=== PATIENT | male | born 1950 | race Caucasian/White ===

== ENCOUNTER → 2016-12-23 | Outpatient (CLI) | payer OTHER ==
[2015-07-18 14:15] VITALS: BP 144/74
--- NOTE | 2016-12-30 15:57 | MRI ---
MR right shoulder without contrast Indication: Right shoulder pain Technique: Multiplanar multi imaging through the right shoulder without contrast Findings: There is mild atrophy of the supraspinatus muscle belly. Mild atrophy of the mid and upper infraspinatus muscle belly noted. Bone marrow signal is normal. 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 This there is moderat e joint effusion with subscapular recess and coracoid bursal distention. The biceps tendon is attenua yelena and probably partially torn with fluid and debris seen in the biceps tendon sheath. Subchondral c yst seen at the glenohumeral joint. The glenoid labrum is chronically torn. There is tear of the supraspinatus at the footprint, high-grade with delaminating component tracking into the anterior fibers of the infraspinatus. Superior fibers subscapularis are torn. Biceps tendon is subluxed medially and partially torn. Osteochondral bodies seen in the biceps tendon sheath. Impression: 1. High-grade tear at the footprint of the supraspinatus, tracking into the anterior fibers of the in fraspinatus. 2. Cut superior fibers subscapularis high-grade tear. 3. Glenohumeral and acromioclavicular joint degenerative changes. 4. Chronic degenerative labral tear. 5. Medial biceps tendon subluxation with partial tear of the biceps tendon. Osteochondral bodies seen in the biceps tendon sheath. Reported By:
== END | disposition home or self-care (01) | DRG 556 ==
LOC: RAD 08:33
PROVIDERS: ATTEND Internal Medicine
DX: M25.511 Pain in right shoulder (principal); M75.121 Complete rotator cuff tear or rupture of right shoulder, not specified as traumatic; S46.811A Strain of other muscles, fascia and tendons at shoulder and upper arm level, right arm, initial encounter; X58.XXXA Exposure to other specified factors, initial encounter; S43.491A Other sprain of right shoulder joint, initial encounter; S43.081A Other subluxation of right shoulder joint, initial encounter
CPT/HCPCS: 73221

== ENCOUNTER 2017-04-23 17:48 | Emergency (ER) | payer OTHER ==
[2017-04-23 17:54] VITALS: BP 131/77; BMI 44.3
[2017-04-23] MEDS ORDERED: NS 1000 ML 1,000 ML ONE (18:01)
[2017-04-23] MEDS ORDERED: TORADOL 30 MG VIAL IVP ONE (18:04)
[2017-04-23] MEDS ORDERED: NS 1000 ML 1,000 ML IV ONE (18:04)
--- NOTE | 2017-04-23 18:05 | DR.GENAD ---
HPI - PCP Primary Care Physician: rosanna - Complaint/Symptoms Chief Complaint:: patient stated for the last 2 days he has been feeling like he has the flu. having body aches,fever,vomiting. - Nurses notes reviewed Nurses Notes Review: Yes - Source History Provided: Patient - Mode of Arrival Mode of Arrival: Wheelchair - Timing Onset of Chief Complaint: 04/21/17 Came on: Suddenly - Duration Duration: Constant Duration: Days - Severity Severity: Moderate PMH - PMH Past Medical History: Yes Past Medical History: Hypothyroidism, COPD, GERD, Arthritis, Sleep Apnea, Hypertension, Dyslipidemia, Diabetes Past Surgical History: Yes Surgical History: Cholecystectomy, Joint Replacement - Family History History of Family Medical Conditions: Yes Family Medical History: Diabetes Mellitus, Cancer, [place], Hypertension - Social History Does patient currently use any type of tobacco product: No Have you used tobacco products in the last 12 months: No Type of Tobacco Use: None Does any household member use tobacco: No Alcohol Use: None Do you use any recreational Drugs:: No Lives With: Family Lives Where: Home - infectious screening In the last 2 months have you had wt loss of >10#?: NO Have you had fever, night sweats or hemotysis?: No Have you traveled outside the country in the last 6 months?: No Isolation: Standard ROS - Review of Systems Constitutional: No Symptoms Reported Eyes: No Symptoms Reported ENTM: No Symptoms Reported Respiratoy: No Symptoms Reported Cardiovascular: No Symptoms Reported Gastrointestinal/Abdominal: No Symptoms Reported Genitourinary: No Symptoms Reported Neurological: No Symptoms Reported Musculoskeletal: No Symptoms Reported Integumentary: No Symptoms Reported Hematologic/Lymphatic: No Symptoms Reported Endocrine: No Symptoms Reported All Other Systems: Reviewed and Negative PE - Vital Signs Vitals: Temperature 101.4 F Pulse Rate 130 Respiratory Rate 18 Blood Pressure [Left Arm] 108/60 Blood Pressure [Right Arm] 144/74 Blood Pressure 131/77 O2 Sat by Pulse Oximetry 91 - General Limitations: No Limitations General Appearance: Alert - Head Head Exam: Normal Inspection - Eyes Eye exam: Normal Appearance - ENT ENT Exam: Normal External Ear Exam External Ear Exam: Normal External Inspection TM/Canal Exam: Bilateral Normal Nose Exam: Normal Nose Exam Mouth Exam: Normal Inspection Throat Exam: Normal Inspection - Neck Neck Exam: Trachea Midline - Chest Chest Inspection: Normal Inspection - Respiratory Respiratory Exam: Normal Lung Sounds Bilat ROR - Labs Reviewed Result Diagrams: 04/23/17 19:18 04/23/17 19:18 Laboratory: 04/23/17 19:31 Sputum - Expectorated Sputum - Final WBC 12.5 X10^3/uL (3.6-10.0) H 04/23/17 19:18 RBC 4.66 X10^6/uL (4.7-6.0) L 04/23/17 19:18 Hgb 12.0 g/dL (13.5-18.0) L 04/23/17 19:18 Hct 36.0 % (42.0-54.0) L 04/23/17 19:18 MCV 77.2 fL (80.0-100.0) L 04/23/17 19:18 MCH 25.7 pg (27.0-34.0) L 04/23/17 19:18 MCHC 33.3 g/dL (33.0-35.0) 04/23/17 19:18 RDW 16.8 % (11.6-16.5) H 04/23/17 19:18 Plt Count 183 X10^3/uL (150.0-450.0) 04/23/17 19:18 Plt Count Comment Adequate (ADEQUATE) 04/23/17 19:18 MPV 7.5 fL (7.4-11.0) 04/23/17 19:18 Neut % 81.5 % (42.0-75.0) H 04/23/17 19:18 Lymph % 7.4 % (21.0-51.0) L 04/23/17 19:18 [place] % 10.7 % (0.0-13.0) 04/23/17 19:18 Eos % 0.1 % (0.9-2.9) L 04/23/17 19:18 Baso % 0.3 % (0.2-1.0) 04/23/17 19:18 Neut # 10.2 x10^3/uL (2.2-4.8) H 04/23/17 19:18 Lymph # 0.9 X10^3/uL (1.3-2.9) L 04/23/17 19:18 [place] # 1.3 x10^3/uL (0.3-0.8) H 04/23/17 19:18 Eos # 0.0 x10^3/uL (0.0-0.2) 04/23/17 19:18 Baso # 0.0 X10^3/uL (0.0-0.1) 04/23/17 19:18 Absolute Nucleated RBC 0.0 /100WBC 04/23/17 19:18 Plt Morphology Comment Normal (NORMAL) 04/23/17 19:18 RBC Morphology Abnormal (NORMAL) 04/23/17 19:18 Hypochromasia Slight A 04/23/17 19:18 Microcytosis Slight A 04/23/17 19:18 Sodium 137 mmol/L (136-145) 04/23/17 19:18 Corrected Sodium 138 mmol/L (136-145) 04/23/17 19:18 Potassium 3.6 mmol/L (3.5-5.1) 04/23/17 19:18 Chloride 103 mmol/L (98-107) 04/23/17 19:18 Carbon Dioxide 25.7 mmol/L (21-32) 04/23/17 19:18 BUN 16 mg/dL (7-18) 04/23/17 19:18 Creatinine 1.10 mg/dL (0.70-1.30) 04/23/17 19:18 Est GFR (MDRD) Af Amer > 60 (>60) 04/23/17 19:18 Est GFR (MDRD) Non-Af > 60 (>60) 04/23/17 19:18 Glucose 138 mg/dL (65-99) H 04/23/17 19:18 Lactic Acid 0.8 mmol/L (0.4-2.0) 04/23/17 19:18 Calcium 8.3 mg/dL (8.5-10.1) L 04/23/17 19:18 Corrected Calcium 8.9 mg/dL (8.5-10.1) 04/23/17 19:18 Total Bilirubin 0.50 mg/dL (0.2-1.0) 04/23/17 19:18 AST 17 Units/L (15-37) 04/23/17 19:18 ALT 21 Units/L (12-78) 04/23/17 19:18 Alkaline Phosphatase 49 Units/L (46-116) 04/23/17 19:18 Total Protein 7.1 g/dL (6.4-8.2) 04/23/17 19:18 Albumin 3.3 g/dL (3.4-5.0) L 04/23/17 19:18 Globulin 3.8 g/dL (2.5-4.5) 04/23/17 19:18 Albumin/Globulin Ratio 0.9 Ratio (1.1-2.1) L 04/23/17 19:18 Specimen Type Clean catch urine 04/23/17 19:22 Urine Color Yellow (YELLOW) 04/23/17 19:22 Urine Appearance Hazy (CLEAR) 04/23/17 19:22 Urine pH 6.0 (5.0 - 8.0) 04/23/17 19:22 Ur Specific [place] 1.010 (1.000-1.030) 04/23/17 19:22 Urine Protein 1+ (NEGATIVE) 04/23/17 19:22 Urine Glucose (UA) 4+ (NEGATIVE) 04/23/17 19:22 Urine Ketones Negative (NEGATIVE) 04/23/17 19:22 Urine Occult Blood 1+ (NEGATIVE) 04/23/17 19:22 Urine Nitrite Negative (NEGATIVE) 04/23/17 19:22 Urine Bilirubin Negative (NEGATIVE) 04/23/17 19:22 Urine Urobilinogen Normal (NORMAL) 04/23/17 19:22 Ur Leukocyte Esterase Negative (NEGATIVE) 04/23/17 19:22 Urine RBC 0-2 /HPF (NEGATIVE) 04/23/17 19:22 Urine WBC 0-2 /HPF (NEGATIVE) 04/23/17 19:22 Ur Squamous Epith Cells Negative /HPF (NEGATIVE) 04/23/17 19:22 Urine Bacteria Negative /HPF (NEGATIVE) 04/23/17 19:22 Urine Sperm Few /HPF (NEGATIVE) 04/23/17 19:22 Ur Culture Indicated? No/not indicated 04/23/17 19:22 Influenza Type A (PCR) Positive (NEGATIVE) A 04/23/17 18:04 Influenza Type B (PCR) Negative (NEGATIVE) 04/23/17 18:04 S. pyogenes (TEM-PCR) Not detected (NOT DETECT) 04/23/17 18:04 - Discharge Plan Condition: Stable Prescriptions: Benzonatate [TESSALON PERLES *] 200 mg PO TID PRN #10 cap PRN Reason: Cough Levofloxacin [LEVAQUIN TAB 500 MG *] 500 mg PO DAILY #7 tab - Follow ups/Referrals Follow ups/Referrals: Ramón Benjamin [Primary Care Provider] - 3 days - Instructions Instructions: Influenza, Adult, [id number], Acute Bronchitis, [id number] Additional Instructions: RETURN TO ED IF WORSE.
[2017-04-23] MEDS ORDERED: TORADOL 30 MG VIAL ONE (18:07)
[2017-04-23] MEDS ORDERED: LEVAQUIN PREMIX IV 750 MG 750 MG/150 ML BAG IV ONE ×2 (19:19→19:25)
--- NOTE | 2017-04-23 19:33 | RAD ---
HISTORY: Flu-like symptoms. Study: Portable chest. Comparison: Chest x-ray dated June 18, 2014. Findings: The trachea is midline. The cardiac silhouette is enlarged with prominent perihilar vasculature and diffuse alveolar/interstitial markings. No obvious focal consolidation, pleural effusion, or pneumot horax.. The bony thorax is unremarkable. IMPRESSION: Constellation of findings likely representing pulmonary edema secondary to congestive hea rt failure. Underlying infiltrate not entirely excluded. Reported By:
[2017-04-23 19:36] LABS: BILIRUBIN,URINE NEGATIVE (NEGATIVE); BLOOD/HEMOGLOBIN,URINE 1+ (NEGATIVE); GLUCOSE, URINE 4+ (NEGATIVE); KETONES,URINE NEGATIVE (NEGATIVE); LEUKOCYTE ESTERASE ,URINE NEGATIVE (NEGATIVE); NITRITES,URINE NEGATIVE (NEGATIVE); PROTEIN,URINE 1+ (NEGATIVE); UROBILINOGEN,URINE NORMAL (NORMAL)
[2017-04-23 19:36] LABS: BASOPHILS % (AUTO) 0.3 % (0.2-1.0); EOSINOPHILS % (AUTO) 0.1 % (0.9-2.9); LYMPHOCYTES # (AUTO) 0.9 X10^3/uL (1.3-2.9); LYMPHOCYTES % (AUTO) 7.4 % (21.0-51.0); MEAN CORPUSCULAR HEMOGLOBIN 25.7 pg (27.0-34.0); MEAN CORPUSCULAR HGB CONC 33.3 g/dL (33.0-35.0); MEAN CORPUSCULAR VOLUME 77.2 fL (80.0-100.0); MEAN PLATELET VOLUME 7.5 fL (7.4-11.0); MONOCYTES # (AUTO) 1.3 x10^3/uL (0.3-0.8); MONOCYTES % (AUTO) 10.7 % (0.0-13.0); NEUTROPHILS # (AUTO) 10.2 x10^3/uL (2.2-4.8); NEUTROPHILS % (AUTO) 81.5 % (42.0-75.0); PLATELET COUNT 183 X10^3/uL (150.0-450.0); RED BLOOD COUNT 4.66 X10^6/uL (4.7-6.0); RED CELL DISTRIBUTION WIDTH 16.8 % (11.6-16.5); WHITE BLOOD COUNT 12.5 X10^3/uL (3.6-10.0)
[2017-04-23 19:45] LABS: APPEARANCE,URINE HAZY (CLEAR); BACTERIA,URINE NEGATIVE /HPF (NEGATIVE); COLOR,URINE YELLOW (YELLOW); RBC,URINE 0-2 /HPF (NEGATIVE); SPERM,URINE FEW /HPF (NEGATIVE); SQUAMOUS EPITHELIAL CELL,UR NEGATIVE /HPF (NEGATIVE)
[2017-04-23 19:50] LABS: ALANINE AMINOTRANSFERASE 21 Units/L (12-78); ALBUMIN 3.3 g/dL (3.4-5.0); ALKALINE PHOSPHATASE 49 Units/L (46-116); ASPARTATE AMINO TRANSFERASE 17 Units/L (15-37); BLOOD UREA NITROGEN 16 mg/dL (7-18); CALCIUM 8.3 mg/dL (8.5-10.1); CARBON DIOXIDE 25.7 mmol/L (21-32); CHLORIDE 103 mmol/L (98-107); COR CA(FOR HYPOALB) 8.9 mg/dL (8.5-10.1); COR NA(FOR HYPERGLY) 138 mmol/L (136-145); HYPOCHROMASIA SLIGHT; MICROCYTOSIS SLIGHT; PLATELET MORPHOLOGY COMMENT NORMAL (NORMAL); SODIUM 137 mmol/L (136-145); TOTAL PROTEIN 7.1 g/dL (6.4-8.2); eGFR BLACK RACES > 60 (>60); eGFR NON BLACK RACES > 60 (>60)
[2017-04-23 19:54] LABS: LACTIC ACID 0.8 mmol/L (0.4-2.0)
[2017-04-23] MEDS ORDERED: TESSALON PERLES PO ONE (20:39)
[2017-04-23] MEDS ORDERED: LASIX PO ONE (20:39)
[2017-04-23] MEDS ORDERED: LASIX ONE (20:44)
== END 2017-04-23 21:05 | disposition home or self-care (01) ==
LOC: ER 18:04
DX: J11.1 Influenza due to unidentified influenza virus with other respiratory manifestations (principal)
CPT/HCPCS: 36415; 71045; 80053; 81001; 83605; 85025; 87040; 87070; 87205; 87502; 87651; 96365; 96374; 96375; 99282; 99283; A4222; J1885; J1956